=== PATIENT | male | born 1935 | race Caucasian/White ===

== ENCOUNTER → 2018-06-30 | Outpatient (CLI) | payer MEDICARE ==
[~2018-06-30] MED LIST: 00186-0370-20 IH; ASPIRIN 81M81 MG/TA2 PO; B-121000 MCG PO; COMBIRESP IH; CYMBALTA 60MG60 MG PO; FLOMAX 0.40.4 MG/CAP PO; FLONASEALLERGY NS; FLORINEF ACETA0.1 MG PO; GLUCOPHAGE500 MG/TAB PO; IPRATROPIUM BROM3 M1 IH; KEPPRA1000 MG PO; LANOXIN 0.120.125 MG PO; LASIX 40MG TABL40 MG PO; LIPITOR 10MG10 MG PO; MASON NATURAL2000 IU; MASON NATURAL2000 IU PO; NEURONTIN400 MG/CAP PO; NITROSTAT0.4 MG/TAB SL; PROAMATINE10 MG PO; PROSCAR 5MG5 MG PO; REFRESH TEARS 330 ML OP; TOPROL XL 25MG25 MG PO; XALATAN EYE DROPS OD; ZOFRAN ODT4 MG PO
[2018-06-30 20:43] LABS: COLLECTION METHOD CATHETER
[2018-06-30 20:50] LABS: BASO % 0.5 % (0.0-2.0); EOS # 0.3 (0.0-0.7); EOS % 4.8 % (0-4.0); GRAN # 4.7 (1.4-6.5); GRAN % 71.1 % (42.2-75.2); HEMATOCRIT 34.6 % (42.0-52.0); HEMOGLOBIN 10.8 g/dl (13.5-18.0); LYMPH # 0.8 (1.2-3.4); MEAN CELL VOLUME 92 fl (80.0-100.0); MEAN CORPUSCULAR HEMOGLOBIN 29 pg (27.0-31.0); MEAN CORPUSCULAR HGB CONC 31 g/dl (33.0-37.0); MEAN PLATELET VOLUME 10.8 fl (7.4-10.4); MONO # 0.7 (0.1-0.6); MONO % 9.8 % (1.7-9.3); PLATELET COUNT 203 K/mm3 (130-400); RED BLOOD COUNT 3.76 M/mm3 (4.20-5.60); REDCELL DISTRIBUTION WIDTH-CV 15.2 % (11.5-14.5)
[2018-06-30 20:52] LABS: CALCIUM 9.9 mg/dL (8.4-10.2); CREATININE, serum 2.09 mg/dL (0.66-1.25)
[2018-06-30 20:53] LABS: MUCOUS Present /lpf; PH 5 (5-8); SQUAMOUS EPITHELIAL None Seen /hpf; URINE APPEARANCE Clear; URINE BACTERIA None Seen /hpf; URINE BILIRUBIN Negative (NEGATIVE); URINE BLOOD Negative (NEGATIVE); URINE COLOR Yellow; URINE GLUCOSE 1+ (NEGATIVE); URINE KETONE Negative (NEGATIVE); URINE LEUKOCYTE ESTERASE Negative (NEGATIVE); URINE NITRATE Negative (NEGATIVE); URINE PROTEIN(semi-quant) 2+ (NEGATIVE); URINE RBC 0-2 /hpf; URINE UROBILINOGEN Negative (NEGATIVE)
== END ==
LOC: COL.LAB 20:37
PROVIDERS: Internal Medicine
DX: I25.10 Atherosclerotic heart disease of native coronary artery without angina pectoris (principal)